=== PATIENT | female | born 1985 | race Caucasian/White ===

== ENCOUNTER 2023-07-11 22:38 | Emergency (ER) | payer MEDICAID ==
[~2023-07-11] VITALS: Ht 160 cm; Wt 66.0 kg
[2023-07-11 23:15] VITALS: TEMP 98.2; O2SAT 99
[2023-07-12 01:02] LABS: BASOPHILS % 0.2 % (0.0-2.0); EOSINOPHILS % 0.1 % (0.0-5.0); HEMATOCRIT. 44.8 % (36.0-48.0); HEMOGLOBIN. 15.1 g/dL (12.0-16.0); LYMPHOCYTES % 9.6 % (20.0-50.0); MEAN CORPUSCULAR HEMOGLOBIN 30.8 pg (28.0-32.0); MEAN CORPUSCULAR HGB CONC 33.8 g/dL (31.0-37.0); MEAN CORPUSCULAR VOLUME 90.9 fL (81.0-99.0); MEAN PLATELET VOLUME 8.2 fl (7.4-10.4); MONOCYTES % 6.5 % (2.0-8.0); NEUTROPHILS % 83.6 % (40.0-76.0); PLATELET 330 x1000/uL (130-400); RED BLOOD CELL COUNT 4.92 mill/uL (4.2-5.4); RED CELL DISTRIBUTION WIDTH 14.3 % (11.6-14.6); WHITE BLOOD COUNT 9.2 x1000/uL (4.5-11.0)
[2023-07-12 01:11] LABS: CARBON DIOXIDE 20 mEq/L (21-32); CHLORIDE 105 mEq/L (98-107); SODIUM 137 mEq/L (136-145)
[2023-07-12 01:12] LABS: CALCIUM 9.7 mg/dL (8.7-10.4)
[2023-07-12 01:17] LABS: CREATININE 1.3 mg/dL (0.6-1.0); GLUCOSE 149 mg/dL (70-105); UREA NITROGEN BLOOD 18 mg/dL (9-23)
[2023-07-12 01:18] LABS: ALANINE AMINOTRANSFERASE 23 IU/L (10-49); ALBUMIN 5.4 g/dL (3.2-4.8); ASPARTATE AMINOTRANSFERASE 20 IU/L (<34)
[2023-07-12 01:19] LABS: BILIRUBIN TOTAL 0.5 mg/dL (0.1-1.0); PROTEIN TOTAL 8.6 g/dL (6.0-8.3)
[2023-07-12 02:56] LABS: HEMATOCRIT. 45.7 % (36.0-48.0); HEMOGLOBIN. 15.2 g/dL (12.0-16.0); MEAN CORPUSCULAR HEMOGLOBIN 29.8 pg (28.0-32.0); MEAN CORPUSCULAR HGB CONC 33.3 g/dL (31.0-37.0); MEAN CORPUSCULAR VOLUME 89.5 fL (81.0-99.0); MEAN PLATELET VOLUME 8.3 fl (7.4-10.4); PLATELET 295 x1000/uL (130-400); RED BLOOD CELL COUNT 5.11 mill/uL (4.2-5.4); RED CELL DISTRIBUTION WIDTH 14.4 % (11.6-14.6)
[2023-07-12 03:02] LABS: DIFFERENTIAL COMMENT 1
[2023-07-12 03:10] LABS: PROTHROMBIN TIME 10.9 sec (9.6-11.0)
[2023-07-12 03:16] LABS: POTASSIUM 3.7 mEq/L (3.5-5.1)
[2023-07-12 03:17] LABS: CALCIUM 9.4 mg/dL (8.7-10.4)
[2023-07-12 03:22] LABS: CREATININE 1.3 mg/dL (0.6-1.0)
[2023-07-12 03:52] LABS: GIANT PLATELETS FEW; OVALOCYTES 1+; PLATELET ESTIMATE NORMAL; TEAR DROP CELLS 2+
[2023-07-12] MEDS ORDERED: DIPH1TAB24 MT (04:09)
[2023-07-12] MEDS ORDERED: ONDA4TAB50 MT (04:10)
[2023-07-12] MEDS ORDERED: TOPUD MT (04:10)
[2023-07-12] MEDS ORDERED: DIPHENOXYLATE/ATROPINE 2.5/0.025MG TABLET PO ONE (04:15)
[2023-07-12] MEDS: ACETAMINOPHEN 325MG TABLET PO ONE (05:51)
[2023-07-12] MEDS: ONDANSETRON 4MG ODT PO ONE (05:51)
[2023-07-12] MEDS: ONDANSETRON 4MG ODT PO NR (05:51)
[2023-07-12 06:10] VITALS: BP 110/73; PULSE 86; RESP 15
== END 2023-07-12 06:12 | disposition home or self-care (01) ==
LOC: ER 22:38
DX: K52.89 Other specified noninfective gastroenteritis and colitis (principal); Z98.890 Other specified postprocedural states; Z88.0 Allergy status to penicillin; Z88.6 Allergy status to analgesic agent
CPT/HCPCS: 99283; 36415 ×2; 80053; 83690; 85025; 85610; 80048; Q0162